=== PATIENT | female | born 1970 | race Caucasian/White ===

== ENCOUNTER 2024-04-08 16:59 | Emergency (ER) | payer BC, SELFPAY ==
[2024-04-08 17:28] VITALS: BP 126/96; PULSE 70; RESP 15; TEMP 37.1; O2SAT 100
--- NOTE | 2024-04-08 17:31 | ED.SKABFB ---
HPI - Skin/Abscess/Foreign Bdy General Chief complaint: Skin/Abscess/Foreign Body Stated complaint: rash Source: patient Mode of arrival: ambulatory Limitations: no limitations History of Present Illness HPI narrative: 53-year-old female presented for complaint of a red rash to the chest and neck for 2 days. Endorses itching and tingling sensation. Applied witch Melissa and took Benadryl. Denies lip, tongue, or throat swelling, shortness of breath or wheezing. Denies changes to soap, detergent, lotion, or any other exposures. No one else in the house or any contacts with similar symptoms. Patient received a steroid injection 1 week ago, reports flushing afterwards. Related Data Home Medications Medication Instructions Recorded Confirmed estradiol 0.025 mg/24 hr 1 patch transdermal 2XW 04/08/24 04/08/24 semiweekly transdermal patch Allergies Allergy/AdvReac Type Severity Reaction Status Date / Time No Known Allergies Allergy Mild Verified 04/08/24 17:30 Review of Systems Review of Systems: CONSTITUTIONAL: Denies body aches, fever, chills, or sweats. EYES: Denies visual changes, redness, or discharge. ENT: Denies rhinorrhea, congestion CARDIOVASCULAR: Denies chest pain, palpitations, or edema. RESPIRATORY: Denies cough or dyspnea. GASTROINTESTINAL: Denies abdominal pain, nausea, vomiting, or diarrhea. SKIN: Per HPI MUSCULOSKELETAL: Denies back pain, joint pain, or myalgia. NEUROLOGIC: Denies headache, numbness, tingling, or weakness. [facility] Family History Family History Father Family history of diabetes mellitus in first degree relative Social History Social History Smoking status: Never smoker Second hand tobacco smoke exposure: No Alcohol intake: current Substance use: never Substance use type: does not use Living arrangements: with family Occupation/Education: occupation Gender identity (if verbalized by the patient): Female Sexual Orientation (if Verbalized by the Patient): Straight or Heterosexual Comments At time of signature, I have reviewed and agree with nursing past medical, surgical, social and family history unless otherwise noted. Please see nursing chart for further information. There is no relevant family history pertinent to the presenting complaint Exam Narrative: GENERAL: Well-appearing HEAD: Normocephalic, atraumatic. EYES: conjunctivae clear, and EOMI. ENT: Mucous membranes moist. Oropharynx without edema, erythema or lesions. NECK: Supple. No lymphadenopathy CHEST: Clear to auscultation. HEART: Regular rate and rhythm. SKIN: Warm, dry. Slightly raised lesions on erythematous base noted to the upper mid chest, mild erythema extending to the neck. Nontender, no drainage. NEURO: Alert and oriented x3. Course Course Emergency Course: Patient is aware of diagnosis, understands and agrees to treatment plan. Anticipatory guidance given. Patient agrees to follow-up as directed and is aware of reasons to seek care at the emergency department. Portions of this record may have been created with voice recognition software Level of Care: Express Care Visit Vital Signs Vital signs: Vital Signs Temperature 98.8 F 04/08/24 17:28 Pulse Rate 70 04/08/24 17:28 Respiratory Rate 15 04/08/24 17:28 Blood Pressure 126/96 H 04/08/24 17:28 Pulse Oximetry 100 04/08/24 17:28 Oxygen Delivery Room Air 04/08/24 17:28 Temperature 98.8 F 04/08/24 17:28 Pulse Rate 70 04/08/24 17:28 Respiratory Rate 15 04/08/24 17:28 Blood Pressure 126/96 H 04/08/24 17:28 Pulse Oximetry 100 04/08/24 17:28 Oxygen Delivery Room Air 04/08/24 17:28 Reviewed MDM - Skin/Abscess/Foreign Bdy MDM Narrative Medical decision making narrative: Discussed physical exam findings. Advised supportive measures and signs/symptoms to go to the ER. Pt is appropriate for outpt treatment and f/u. Differential Diagnosis Differential diagnosis: Likely abscess of skin or subcutaneous tissue, viral exanthem, urticaria, herpes zoster, allergic reaction to drug, cellulitis, insect bites and contact dermatitis Discharge Plan Discharge Clinical Impression: Contact dermatitis Patient Disposition: Home, Self-Care Condition: Stable Instructions: Antibiotic Form, Contact Dermatitis (ED) Additional Instructions: Take steroids and Pepcid as directed. Benadryl every 8 hours as needed, or you can take Zyrtec, Claritin or Kahtya according to package directions for itching Cool compresses to the sites of itching, avoid hot water. Avoid scratching to reduce the risk of infection You can use over the counter cream such as hydrocortisone, Benadryl or calamine as needed Follow up with your primary care provider as needed Go to the ER for worsening symptoms or concerns (lip, tongue, throat swelling/itching, trouble breathing etc) Prescriptions: New prednisone 20 mg tablet 40 mg PO DAILY 5 Days Qty: 10 0RF No Action estradiol 0.025 mg/24 hr patch semiweekly 1 patch transdermal 2XW Follow-up/Referrals: Mohamud Menjivar MD [Primary Care Provider] - Time of Disposition: 17:41
== END 2024-04-08 17:45 | disposition home or self-care (01) ==
PROVIDERS: Emergency Provider Nurse Practitioner Family; PCP Family Medicine
DX: L25.9 Unspecified contact dermatitis, unspecified cause (principal)
CPT/HCPCS: 99213; G0463